=== PATIENT | female | born 1930 | race Caucasian/White ===

== ENCOUNTER 2017-04-21 15:56 | Emergency (ER) | payer MEDICARE, OTHER ==
[~2017-04-21] VITALS: Ht 152.4 cm; Wt 68.2 kg
[~2017-04-21 15:56] MED LIST: AMLO-511 PO; ASPI-556 PO; BENA20 PO; CITA10TA68 PO; DONE10TA PO; ERGO500050 PO; FENO134C PO; INSU100C3 SQ; INSU100C4 SQ; MEMA10TA11 PO; SIMV-260 PO; SITA1TAB2 PO
[2017-04-21 16:07] LABS: GLUCOSE COMMENT 1 Doctor Notified; GLUCOSE COMMENT 2 Repeated; GLUCOSE,POINT OF CARE 48 MG/DL (70-110)
[2017-04-21] MEDS ORDERED: DEXTROSE 50%-WATER 25 GM/50 ML SYRINGE IVP ONE (16:15)
[2017-04-21 16:22] LABS: GLUCOSE COMMENT 1 Repeated; GLUCOSE,POINT OF CARE 61 MG/DL (70-110)
[2017-04-21 16:49] LABS: BASOPHILS % (AUTO) 0.6 % (0.0-2.0); EOSINOPHILS % (AUTO) 0.6 % (1.0-6.0); HEMATOCRIT 34.5 % (36-46); HEMOGLOBIN 11.7 g/dL (12.0-16.0); LYMPHOCYTES # (AUTO) 2.2 K/uL (1.0-4.8); LYMPHOCYTES % (AUTO) 18.4 % (22.0-44.0); MEAN CORPUSCULAR HEMOGLOBIN 28.5 pg (26.0-34.0); MEAN CORPUSCULAR HGB CONC 33.9 G/dL (31.0-37.0); MEAN CORPUSCULAR VOLUME 84 fL (80-100); MONOCYTES # (AUTO) 0.6 K/uL (0.1-1.0); MONOCYTES % (AUTO) 4.9 % (2.0-9.0); NEUTROPHILS % (AUTO) 75.5 % (40.0-70.0); PLATELET COUNT (AUTO) 281 K/uL (150-450); RED CELL DISTRIBUTION WIDTH 14.1 % (11.5-14.5); WHITE BLOOD COUNT (AUTO) 11.9 K/uL (4.5-11.0)
[2017-04-21 17:10] LABS: CALCIUM, TOTAL 9.1 mg/dL (8.8-10.5); CREATININE 1.35 mg/dL (0.60-1.30); POTASSIUM 3.4 mmol/L (3.5-5.1)
[2017-04-21 17:15] LABS: BILIRUBIN,TOTAL 0.4 mg/dL (0.1-1.0); TOTAL PROTEIN, SERUM 6.9 g/dL (6.4-8.2)
[2017-04-21 17:18] LABS: LACTIC ACID 1.2 mmol/L (0.4-2.0)
[2017-04-21 17:33] LABS: GLUCOSE,POINT OF CARE 181 MG/DL (70-110)
[2017-04-21 19:27] LABS: GLUCOSE,POINT OF CARE 117 MG/DL (70-110)
[2017-04-21 19:49] LABS: APPEARANCE,URINE CLOUDY (CLEAR); GLUCOSE, URINE (UA) NEGATIVE (NEGATIVE); KETONES,URINE NEGATIVE (NEGATIVE); LEUKOCYTE ESTERASE ,URINE TRACE (NEGATIVE); OCCULT BLOOD,URINE TRACE (NEGATIVE); PROTEIN,URINE NEGATIVE (NEGATIVE)
[2017-04-21 19:52] LABS: ADD UA MICROSCOPIC YES
[2017-04-21 20:04] LABS: RBC,URINE None Seen /HPF (0-2); SQUAMOUS EPITHELIAL CELL,UR Rare /LPF (None Seen)
[2017-04-21 20:33] LABS: GLUCOSE,POINT OF CARE 149 MG/DL (70-110)
[2017-04-21 20:37] VITALS: BP 142/65
== END 2017-04-21 20:38 | disposition home or self-care (01) ==
LOC: EMS 16:03
DX: E11.649 Type 2 diabetes mellitus with hypoglycemia without coma (principal); E78.00 Pure hypercholesterolemia, unspecified; I10 Essential (primary) hypertension; E03.9 Hypothyroidism, unspecified; Z95.0 Presence of cardiac pacemaker; Z79.4 Long term (current) use of insulin; Z79.82 Long term (current) use of aspirin
CPT/HCPCS: 51702; 82948; 82962; 83605; 87040; 87086; 93005; 96374; 99285

== ENCOUNTER 2017-10-01 15:36 | Inpatient (IN) | payer MEDICARE, OTHER ==
[~2017-10-01] VITALS: Ht 162.6 cm; Wt 76.5 kg
[~2017-10-01 15:36] MED LIST changes: +CIPR-279 PO; +CITA20TA9 PO; -DONE10TA PO; +DONE10TA8 PO; +ERGO500044 PO; +FENO135C4 PO; +IBAN150T8 PO; +INSLAN SQ; +INSU100I15 SQ
[2017-10-01] MEDS ORDERED: DEXTROSE 50%-WATER 25 GM/50 ML SYRINGE IVP ONE ×3 (15:56→19:15)
[2017-10-01 16:04] LABS: BASOPHILS % (AUTO) 0.3 % (0.0-2.0); EOSINOPHILS % (AUTO) 1.2 % (1.0-6.0); HEMATOCRIT 39.4 % (36-46); HEMOGLOBIN 13.1 g/dL (12.0-16.0); LYMPHOCYTES # (AUTO) 4.7 K/uL (1.0-4.8); LYMPHOCYTES % (AUTO) 31.9 % (22.0-44.0); MEAN CORPUSCULAR HEMOGLOBIN 28.5 pg (26.0-34.0); MEAN CORPUSCULAR HGB CONC 33.3 G/dL (31.0-37.0); MEAN CORPUSCULAR VOLUME 86 fL (80-100); MONOCYTES # (AUTO) 0.7 K/uL (0.1-1.0); MONOCYTES % (AUTO) 4.7 % (2.0-9.0); NEUTROPHILS # (AUTO) 9.1 K/uL (1.8-7.7); NEUTROPHILS % (AUTO) 61.9 % (40.0-70.0); PLATELET COUNT (AUTO) 408 K/uL (150-450); RED CELL DISTRIBUTION WIDTH 14.1 % (11.5-14.5)
[2017-10-01 16:17] LABS: GLUCOSE,POINT OF CARE 25 MG/DL (70-110)
[2017-10-01 16:20] LABS: ALBUMIN 3.5 g/dL (3.4-5.0); BILIRUBIN,TOTAL 0.3 mg/dL (0.1-1.0); CREATININE 1.37 mg/dL (0.60-1.30); TOTAL PROTEIN, SERUM 7.5 g/dL (6.4-8.2)
[2017-10-01 16:23] LABS: POTASSIUM 2.8 mmol/L (3.5-5.1)
[2017-10-01] MEDS ORDERED: POTASSIUM CHLORIDE 20 MEQ ER TABLET PO ONE (16:30)
[2017-10-01 16:38] LABS: GLUCOSE,POINT OF CARE 243 MG/DL (70-110)
[2017-10-01] MEDS ORDERED: CEPHALEXIN MONOHYDRATE 500 MG CAPSULE PO ONE (17:30)
[2017-10-01] MEDS ORDERED: LIRA0.6P SQ (17:42)
[2017-10-01] MEDS ORDERED: LOSA25TA21 PO (17:42)
[2017-10-01 19:08] LABS: GLUCOSE,POINT OF CARE 53 MG/DL (70-110)
[2017-10-01] MEDS ORDERED: 0.9% SODIUM CHLORIDE 10 ML SYRINGE IVP PRN (19:15)
[2017-10-01] MEDS ORDERED: ONDANSETRON HCL 4 MG/2 ML VIAL IVP PRN ×2 (19:15→22:45)
[2017-10-01] MEDS ORDERED: ACETAMINOPHEN 325 MG TABLET PO PRN ×2 (19:15→22:45)
[2017-10-01] MEDS ORDERED: DEXTROSE 5%-0.9% SODIUM CHL 1,000 ML IV ONE (19:15)
[2017-10-01 19:23] LABS: CREATININE 1.22 mg/dL (0.60-1.30); POTASSIUM 3.5 mmol/L (3.5-5.1)
[2017-10-01 19:30] LABS: ALBUMIN 3.3 g/dL (3.4-5.0); BILIRUBIN,TOTAL 0.5 mg/dL (0.1-1.0); TOTAL PROTEIN, SERUM 7.1 g/dL (6.4-8.2)
[2017-10-01 20:14] LABS: APPEARANCE,URINE CLOUDY (CLEAR); BILIRUBIN,URINE NEGATIVE (NEGATIVE); GLUCOSE, URINE (UA) 500 mg/dL (NEGATIVE); KETONES,URINE NEGATIVE (NEGATIVE); LEUKOCYTE ESTERASE ,URINE NEGATIVE (NEGATIVE); NITRATE,URINE NEGATIVE (NEGATIVE); OCCULT BLOOD,URINE NEGATIVE (NEGATIVE); PH,URINE 5.5 (5.0-8.0); PROTEIN,URINE POS 1+ (NEGATIVE)
[2017-10-01 20:22] LABS: GLUCOSE,POINT OF CARE 107 MG/DL (70-110)
[2017-10-01 20:22] LABS: BACTERIA,URINE Few /HPF (None Seen); RBC,URINE 0-2 /HPF (0-2); SQUAMOUS EPITHELIAL CELL,UR Moderate /LPF (None Seen); WBC,URINE 0-2 /HPF (0-5)
[2017-10-01 21:43] LABS: GLUCOSE,POINT OF CARE 82 MG/DL (70-110)
[2017-10-01] MEDS ORDERED: MAGNESIUM HYDROXIDE SUSPENSION 30 ML UDCUP PO PRN (22:45)
[2017-10-01] MEDS ORDERED: ALBUTEROL SULFATE 2.5 MG/0.5 ML NEB SOLUTION NEB PRN (22:45)
[2017-10-01] MEDS ORDERED: HYDROCODONE/ACETAMINOPHEN 5-325 MG TABLET PO PRN (22:45)
[2017-10-01] MEDS ORDERED: DEXTROSE 5%-WATER 1,000 ML IV ONE (22:45)
[2017-10-01] MEDS ORDERED: IPRATROPIUM BROMIDE 0.5 MG/2.5 ML NEB SOLUTION NEB PRN (22:45)
[2017-10-01] MEDS ORDERED: MORPHINE SULFATE 2 MG/ML SYRINGE IVP PRN (22:45)
[2017-10-01] MEDS ORDERED: LEVOFLOXACIN 500 MG/D5% WATER 100 ML IV ONE (23:00)
[2017-10-01 23:03] LABS: GLUCOSE,POINT OF CARE 142 MG/DL (70-110)
[2017-10-02 02:32] LABS: GLUCOSE,POINT OF CARE 108 MG/DL (70-110)
[2017-10-02 06:38] LABS: GLUCOSE,POINT OF CARE 139 MG/DL (70-110)
[2017-10-02 06:58] LABS: GLUCOSE,POINT OF CARE 126 MG/DL (70-110)
[2017-10-02 07:32] LABS: GLUCOSE,POINT OF CARE 115 MG/DL (70-110)
[2017-10-02] MEDS: PANTOPRAZOLE SODIUM 40 MG DR TABLET PO SCH (08:14)
[2017-10-02 09:01] VITALS: BP 134/58
[2017-10-02] MEDS: BENAZEPRIL HCL 20 MG TABLET PO SCH (09:03)
[2017-10-02] MEDS: MEMANTINE HCL 10 MG TABLET PO SCH ×2 (09:03→20:20)
[2017-10-02] MEDS: ENOXAPARIN SODIUM 40 MG/0.4 ML PF SYRINGE SQ SCH (09:03)
[2017-10-02] MEDS: DONEPEZIL HCL 10 MG TABLET PO SCH (09:04)
[2017-10-02] MEDS: CITALOPRAM HYDROBROMIDE 20 MG TABLET PO SCH (09:04)
[2017-10-02] MEDS: LOSARTAN POTASSIUM 25 MG TABLET PO SCH ×2 (09:04→20:20)
[2017-10-02 10:33] LABS: EOSINOPHILS % (AUTO) 0.7 % (1.0-6.0); HEMATOCRIT 36.1 % (36-46); HEMOGLOBIN 12.1 g/dL (12.0-16.0); LYMPHOCYTES # (AUTO) 2.4 K/uL (1.0-4.8); LYMPHOCYTES % (AUTO) 23.1 % (22.0-44.0); MEAN CORPUSCULAR HEMOGLOBIN 28.9 pg (26.0-34.0); MEAN CORPUSCULAR HGB CONC 33.7 G/dL (31.0-37.0); MEAN CORPUSCULAR VOLUME 86 fL (80-100); MONOCYTES # (AUTO) 0.6 K/uL (0.1-1.0); MONOCYTES % (AUTO) 6.2 % (2.0-9.0); NEUTROPHILS # (AUTO) 7.2 K/uL (1.8-7.7); PLATELET COUNT (AUTO) 334 K/uL (150-450)
[2017-10-02 11:04] LABS: BILIRUBIN,TOTAL 0.4 mg/dL (0.1-1.0); C-REACTIVE PROTEIN QUANT 0.07 mg/dL (0.00-0.30); CALCIUM, TOTAL 8.7 mg/dL (8.8-10.5); CHOL/HDL RATIO 4.6 (3.9-5.7); CREATININE 1.29 mg/dL (0.60-1.30); FREE T4 (FREE THYROXINE) 1.39 ng/dL (0.76-1.46); MAGNESIUM 1.8 mg/dL (1.80-2.40); PHOSPHORUS 2.6 mg/dL (2.5-4.9); POTASSIUM 4.5 mmol/L (3.5-5.1); THYROID STIMULATING HORMONE 6.39 uIU/mL (0.36-3.74); TOTAL PROTEIN, SERUM 6.8 g/dL (6.4-8.2)
[2017-10-02 11:38] LABS: ERYTHROCYTE SEDIMENTATION RATE 40 MM/HR (0-20)
[2017-10-02 11:57] VITALS: BP 141/61
[2017-10-02 12:30] VITALS: BP 141/61
[2017-10-02 16:04] VITALS: BP 145/85
[2017-10-02 18:14] LABS: GLUCOMETER DEV NAME(LOC) 5S 1L; GLUCOSE,POINT OF CARE 153 MG/DL (70-110)
[2017-10-02 18:15] LABS: GLUCOMETER DEV NAME(LOC) 5S 1L; GLUCOSE,POINT OF CARE 197 MG/DL (70-110)
[2017-10-02 20:04] VITALS: BP 141/53
[2017-10-02] MEDS ORDERED: SIMVASTATIN 20 MG TABLET PO SCH (21:00)
[2017-10-02] MEDS ORDERED: LEVOFLOXACIN 250 MG/D5% WATER 50 ML IV SCH (23:00)
[2017-10-02] MEDS ORDERED: SODIUM CHLORIDE 0.9% 100 ML ONE (23:49)
[2017-10-03 00:07] VITALS: BP 149/58
[2017-10-03 04:30] VITALS: BP 127/50
[2017-10-03] MEDS ORDERED: LEVOTHYROXINE SODIUM 25 MCG TABLET PO SCH (06:30)
[2017-10-03 07:46] LABS: BASOPHILS # (AUTO) 0.04 K/uL (0.00-0.20); BASOPHILS % (AUTO) 0.4 % (0.0-2.0); HEMATOCRIT 36.4 % (36-46); HEMOGLOBIN 12.1 g/dL (12.0-16.0); LYMPHOCYTES # (AUTO) 2.4 K/uL (1.0-4.8); LYMPHOCYTES % (AUTO) 25.5 % (22.0-44.0); MEAN CORPUSCULAR HEMOGLOBIN 28.9 pg (26.0-34.0); MEAN CORPUSCULAR HGB CONC 33.3 G/dL (31.0-37.0); MEAN CORPUSCULAR VOLUME 87 fL (80-100); MONOCYTES # (AUTO) 0.7 K/uL (0.1-1.0); NEUTROPHILS # (AUTO) 6.1 K/uL (1.8-7.7); PLATELET COUNT (AUTO) 297 K/uL (150-450)
[2017-10-03 07:58] LABS: CALCIUM, TOTAL 8.8 mg/dL (8.8-10.5); CREATININE 1.27 mg/dL (0.60-1.30); MAGNESIUM 1.8 mg/dL (1.80-2.40)
[2017-10-03] MEDS: PANTOPRAZOLE SODIUM 40 MG DR TABLET PO SCH (08:13)
[2017-10-03] MEDS: MEMANTINE HCL 10 MG TABLET PO SCH (08:13)
[2017-10-03] MEDS: DONEPEZIL HCL 10 MG TABLET PO SCH (08:13)
[2017-10-03] MEDS: BENAZEPRIL HCL 20 MG TABLET PO SCH (08:13)
[2017-10-03] MEDS: CITALOPRAM HYDROBROMIDE 20 MG TABLET PO SCH (08:13)
[2017-10-03] MEDS: ENOXAPARIN SODIUM 40 MG/0.4 ML PF SYRINGE SQ SCH (08:14)
[2017-10-03 08:22] VITALS: BP 132/50
[2017-10-03 11:15] VITALS: BP 124/43
[2017-10-03] MEDS: LOSARTAN POTASSIUM 25 MG TABLET PO SCH (12:38)
[2017-10-03] MEDS ORDERED: LEVO25TA9 PO (13:57)
[2017-10-03 15:22] VITALS: BP 102/49
[2017-10-03 19:13] LABS: GLUCOMETER DEV NAME(LOC) 5S 2N; GLUCOSE,POINT OF CARE 156 MG/DL (70-110)
[2017-10-03 19:13] LABS: GLUCOMETER DEV NAME(LOC) 5S 2N; GLUCOSE,POINT OF CARE 192 MG/DL (70-110)
[2017-10-03 19:13] LABS: GLUCOMETER DEV NAME(LOC) 5S 2N; GLUCOSE,POINT OF CARE 173 MG/DL (70-110)
[2017-10-03 19:13] LABS: GLUCOMETER DEV NAME(LOC) 5S 2N; GLUCOSE,POINT OF CARE 163 MG/DL (70-110)
[2017-10-03 19:13] LABS: GLUCOMETER DEV NAME(LOC) 5S 2N; GLUCOSE,POINT OF CARE 181 MG/DL (70-110)
[2017-10-03 19:18] LABS: GLUCOMETER DEV NAME(LOC) 5S 2N; GLUCOSE,POINT OF CARE 138 MG/DL (70-110)
[2017-10-03 19:18] LABS: GLUCOMETER DEV NAME(LOC) 5S 2N; GLUCOSE,POINT OF CARE 245 MG/DL (70-110)
[2017-10-03 19:18] LABS: GLUCOMETER DEV NAME(LOC) 5S 2N; GLUCOSE,POINT OF CARE 157 MG/DL (70-110)
[2017-10-03 19:18] LABS: GLUCOMETER DEV NAME(LOC) 5S 2N; GLUCOSE,POINT OF CARE 228 MG/DL (70-110)
[2017-10-05 22:33] LABS: GLUCOMETER DEV NAME(LOC) 5S 1L; GLUCOSE,POINT OF CARE 275 MG/DL (70-110)
[2017-10-05 22:33] LABS: GLUCOMETER DEV NAME(LOC) 5S 1L; GLUCOSE,POINT OF CARE 152 MG/DL (70-110)
[2017-10-05 22:34] LABS: GLUCOMETER DEV NAME(LOC) 5S 1L; GLUCOSE,POINT OF CARE 198 MG/DL (70-110)
[2017-10-05 22:34] LABS: GLUCOMETER DEV NAME(LOC) 5S 1L; GLUCOSE,POINT OF CARE 126 MG/DL (70-110)
[2017-10-08] MEDS ORDERED: ERGOCALCIFEROL (VIT D2) 50,000 UNITS CAPSULE PO SCH (09:00)
== END 2017-10-03 18:00 | disposition home or self-care (01) | DRG 637 ==
LOC: EMS 15:37 → 5S 10-02 03:59
PROVIDERS: ADMIT Hospitalist; ATTEND Hospitalist
DX: E11.649 Type 2 diabetes mellitus with hypoglycemia without coma (principal); G93.41 Metabolic encephalopathy; I42.9 Cardiomyopathy, unspecified; F05 Delirium due to known physiological condition; E11.22 Type 2 diabetes mellitus with diabetic chronic kidney disease; G30.9 Alzheimer's disease, unspecified; E66.01 Morbid (severe) obesity due to excess calories; N39.0 Urinary tract infection, site not specified; E78.00 Pure hypercholesterolemia, unspecified; E03.9 Hypothyroidism, unspecified; F02.80 Dementia in other diseases classified elsewhere, unspecified severity, without behavioral disturbance, psychotic disturbance, mood disturbance, and anxiety; I12.9 Hypertensive chronic kidney disease with stage 1 through stage 4 chronic kidney disease, or unspecified chronic kidney disease; N18.9 Chronic kidney disease, unspecified; Z79.4 Long term (current) use of insulin; Z79.899 Other long term (current) drug therapy; Z68.28 Body mass index [BMI] 28.0-28.9, adult
CPT/HCPCS: 82948; 82962; 83036; 83735; 84100; 84439; 84443; 85651; 86140; 93005; 96361; 96365; 96375; 97161; 99285; J1650; J1956; J7042; J7050; J7060

== ENCOUNTER 2017-10-13 13:11 | Emergency (ER) | payer MEDICARE, OTHER ==
[~2017-10-13] VITALS: Ht 152.4 cm; Wt 71.0 kg
[~2017-10-13 13:11] MED LIST changes: -AMLO-511 PO; -ASPI-556 PO; -CIPR-279 PO; -CITA10TA68 PO; -ERGO500044 PO; -FENO135C4 PO; -IBAN150T8 PO; -INSLAN SQ; -INSU100I15 SQ; +LEVO25TA9 PO; +LIRA0.6P SQ; +LOSA25TA21 PO; -SITA1TAB2 PO
[2017-10-13] MEDS ORDERED: VALS1TAB75 PO (13:24)
[2017-10-13 13:28] LABS: GLUCOSE,POINT OF CARE 52 MG/DL (70-110)
[2017-10-13 13:57] LABS: GLUCOSE,POINT OF CARE 84 MG/DL (70-110)
[2017-10-13 14:45] LABS: BASOPHILS % (AUTO) 0.5 % (0.0-2.0); EOSINOPHILS % (AUTO) 0.6 % (1.0-6.0); HEMATOCRIT 35.3 % (36-46); HEMOGLOBIN 11.9 g/dL (12.0-16.0); LYMPHOCYTES # (AUTO) 1.5 K/uL (1.0-4.8); LYMPHOCYTES % (AUTO) 14.7 % (22.0-44.0); MEAN CORPUSCULAR HEMOGLOBIN 28.8 pg (26.0-34.0); MEAN CORPUSCULAR HGB CONC 33.7 G/dL (31.0-37.0); MEAN CORPUSCULAR VOLUME 86 fL (80-100); MONOCYTES # (AUTO) 0.5 K/uL (0.1-1.0); MONOCYTES % (AUTO) 4.7 % (2.0-9.0); NEUTROPHILS # (AUTO) 8.3 K/uL (1.8-7.7); NEUTROPHILS % (AUTO) 79.5 % (40.0-70.0); PLATELET COUNT (AUTO) 257 K/uL (150-450); RED BLOOD CELL COUNT(AUTO) 4.13 MIL/uL (4.00-5.20); RED CELL DISTRIBUTION WIDTH 14.2 % (11.5-14.5)
[2017-10-13 15:00] LABS: CALCIUM, TOTAL 8.8 mg/dL (8.8-10.5); CREATININE 1.22 mg/dL (0.60-1.30); POTASSIUM 3.9 mmol/L (3.5-5.1)
[2017-10-13 15:06] LABS: ALBUMIN 2.9 g/dL (3.4-5.0); BILIRUBIN,TOTAL 0.4 mg/dL (0.1-1.0); TOTAL PROTEIN, SERUM 6.6 g/dL (6.4-8.2)
[2017-10-13 15:38] LABS: APPEARANCE,URINE CLOUDY (CLEAR); BILIRUBIN,URINE NEGATIVE (NEGATIVE); GLUCOSE, URINE (UA) NEGATIVE (NEGATIVE); KETONES,URINE NEGATIVE (NEGATIVE); LEUKOCYTE ESTERASE ,URINE NEGATIVE (NEGATIVE); NITRATE,URINE NEGATIVE (NEGATIVE); OCCULT BLOOD,URINE NEGATIVE (NEGATIVE); PH,URINE 5.5 (5.0-8.0); PROTEIN,URINE POS 1+ (NEGATIVE); UROBILINOGEN,URINE 0.2 mg/dL (<=1.0)
[2017-10-13 16:07] LABS: BACTERIA,URINE None Seen /HPF (None Seen); RBC,URINE 0-2 /HPF (0-2); SQUAMOUS EPITHELIAL CELL,UR Few /LPF (None Seen); WBC,URINE 0-2 /HPF (0-5)
[2017-10-13 16:12] LABS: GLUCOSE,POINT OF CARE 104 MG/DL (70-110)
[2017-10-13 16:28] VITALS: BP 128/52
== END 2017-10-13 16:50 | disposition home or self-care (01) ==
LOC: EMS 13:14
DX: E11.649 Type 2 diabetes mellitus with hypoglycemia without coma (principal); I95.9 Hypotension, unspecified; E78.00 Pure hypercholesterolemia, unspecified; I10 Essential (primary) hypertension; E03.9 Hypothyroidism, unspecified; Z95.0 Presence of cardiac pacemaker; Z79.4 Long term (current) use of insulin
CPT/HCPCS: 82962; 99285

== ENCOUNTER 2018-10-21 11:52 | Emergency (ER) | payer MEDICARE, OTHER ==
[~2018-10-21] VITALS: Ht 152.4 cm; Wt 71.8 kg
[~2018-10-21 11:52] MED LIST changes: +CITA-106 PO; -CITA20TA9 PO; -LOSA25TA21 PO; +VALS1TAB75 PO
[2018-10-21] MEDS ORDERED: LOSA50TA64 PO (12:03)
[2018-10-21 12:19] LABS: GLUCOSE,POINT OF CARE 55 MG/DL (70-110)
[2018-10-21 13:05] LABS: BASOPHILS % (AUTO) 0.5 % (0.0-2.0); EOSINOPHILS % (AUTO) 0.8 % (1.0-6.0); HEMATOCRIT 40.7 % (36-46); HEMOGLOBIN 13.3 g/dL (12.0-16.0); LYMPHOCYTES # (AUTO) 1.7 K/uL (1.0-4.8); LYMPHOCYTES % (AUTO) 16.8 % (22.0-44.0); MEAN CORPUSCULAR HEMOGLOBIN 28.1 pg (26.0-34.0); MEAN CORPUSCULAR HGB CONC 32.6 G/dL (31.0-37.0); MEAN CORPUSCULAR VOLUME 86 fL (80-100); MONOCYTES # (AUTO) 0.4 K/uL (0.1-1.0); MONOCYTES % (AUTO) 4.1 % (2.0-9.0); NEUTROPHILS # (AUTO) 8.1 K/uL (1.8-7.7); NEUTROPHILS % (AUTO) 77.8 % (40.0-70.0); PLATELET COUNT (AUTO) 306 K/uL (150-450); RED BLOOD CELL COUNT(AUTO) 4.72 MIL/uL (4.00-5.20); RED CELL DISTRIBUTION WIDTH 13.6 % (11.5-14.5)
[2018-10-21 13:13] LABS: APPEARANCE,URINE CLOUDY (CLEAR); BILIRUBIN,URINE NEGATIVE (NEGATIVE); GLUCOSE, URINE (UA) NEGATIVE (NEGATIVE); KETONES,URINE NEGATIVE (NEGATIVE); LEUKOCYTE ESTERASE ,URINE MODERATE (NEGATIVE); NITRATE,URINE POSITIVE (NEGATIVE); OCCULT BLOOD,URINE NEGATIVE (NEGATIVE); PROTEIN,URINE POS 1+ (NEGATIVE)
[2018-10-21 13:16] LABS: CREATININE 1.04 mg/dL (0.60-1.30); POTASSIUM 4.3 mmol/L (3.5-5.1)
[2018-10-21 13:22] LABS: ALBUMIN 3.3 g/dL (3.4-5.0); BILIRUBIN,TOTAL 0.3 mg/dL (0.1-1.0); TOTAL PROTEIN, SERUM 7.3 g/dL (6.4-8.2)
[2018-10-21 13:24] LABS: GLUCOSE,POINT OF CARE 89 MG/DL (70-110)
[2018-10-21 13:26] LABS: BACTERIA,URINE Many /HPF (None Seen); SQUAMOUS EPITHELIAL CELL,UR Moderate /LPF (None Seen); WBC,URINE 26-50 /HPF (0-5)
[2018-10-21 13:35] VITALS: BP 129/59
[2018-10-21] MEDS ORDERED: CIPROFLOXACIN HCL 250 MG TABLET PO ONE (14:00)
== END 2018-10-21 14:22 | disposition home or self-care (01) ==
LOC: EMS 11:53
DX: N39.0 Urinary tract infection, site not specified (principal); R41.82 Altered mental status, unspecified; I10 Essential (primary) hypertension; E11.9 Type 2 diabetes mellitus without complications; E78.00 Pure hypercholesterolemia, unspecified; E03.9 Hypothyroidism, unspecified; F41.9 Anxiety disorder, unspecified; Z79.4 Long term (current) use of insulin; Z79.899 Other long term (current) drug therapy
CPT/HCPCS: 87086; 93005

== ENCOUNTER 2020-05-23 13:05 | Inpatient (IN) | payer MEDICARE, OTHER ==
[~2020-05-23] VITALS: Ht 175.3 cm; Wt 77.5 kg
[~2020-05-23 13:05] MED LIST changes: -BENA20 PO; -CITA-106 PO; +CITA-144 PO; -DONE10TA8 PO; -ERGO500050 PO; -INSU100C3 SQ; +LEVO-72 PO; -LEVO25TA9 PO; +LOSA50TA37 PO; -VALS1TAB75 PO
[2020-05-23 13:39] LABS: BASOPHILS % (AUTO) 0.5 % (0.0-2.0); EOSINOPHILS % (AUTO) 2.5 % (1.0-6.0); HEMATOCRIT 36.8 % (36-46); HEMOGLOBIN 12.6 g/dL (12.0-16.0); LYMPHOCYTES # (AUTO) 1.6 K/uL (1.0-4.8); LYMPHOCYTES % (AUTO) 22.4 % (22.0-44.0); MEAN CORPUSCULAR HEMOGLOBIN 28.6 pg (26.0-34.0); MEAN CORPUSCULAR HGB CONC 34.2 G/dL (31.0-37.0); MEAN CORPUSCULAR VOLUME 84 fL (80-100); MONOCYTES # (AUTO) 0.4 K/uL (0.1-1.0); MONOCYTES % (AUTO) 6.1 % (2.0-9.0); NEUTROPHILS # (AUTO) 4.9 K/uL (1.8-7.7); NEUTROPHILS % (AUTO) 68.5 % (40.0-70.0); PLATELET COUNT (AUTO) 182 K/uL (150-450); RED CELL DISTRIBUTION WIDTH 13.7 % (11.5-14.5)
[2020-05-23 13:53] LABS: PROTHROMBIN TIME 10.9 SEC (9.4-11.6)
[2020-05-23 14:15] LABS: BILIRUBIN,TOTAL 0.6 mg/dL (0.1-1.0); CALCIUM, TOTAL 8.2 mg/dL (8.8-10.5); CREATININE 1.26 mg/dL (0.60-1.30); TOTAL PROTEIN, SERUM 5.6 g/dL (6.4-8.2)
[2020-05-23 14:16] LABS: POTASSIUM 2.8 mmol/L (3.5-5.1)
[2020-05-23] MEDS ORDERED: POTASSIUM CHLORIDE 20 MEQ ER TABLET PO ONE (14:30)
[2020-05-23] MEDS ORDERED: SODIUM CHLORIDE 0.9% 500 ML IV ONE (14:58)
[2020-05-23] MEDS ORDERED: FUROSEMIDE 40 MG/4 ML VIAL IVP ONE (15:00)
[2020-05-23] MEDS: POTASSIUM CHL 10 MEQ/WATER 50 ML IV SCH ×2 (15:21→16:32)
[2020-05-23 15:32] LABS: MAGNESIUM 1.8 mg/dL (1.80-2.40); PHOSPHORUS 3.8 mg/dL (2.5-4.9)
[2020-05-23] MEDS ORDERED: ONDANSETRON HCL 4 MG/2 ML VIAL IVP PRN (15:45)
[2020-05-23] MEDS ORDERED: 0.9% SODIUM CHLORIDE 10 ML SYRINGE IVP PRN ×2 (15:45→17:15)
[2020-05-23] MEDS ORDERED: ACETAMINOPHEN 325 MG TABLET PO PRN (15:45)
[2020-05-23] MEDS ORDERED: DEXTROSE 50%-WATER 25 GM/50 ML SYRINGE IVP PRN (17:00)
[2020-05-23] MEDS ORDERED: INSLAN SQ (17:15)
[2020-05-23] MEDS ORDERED: ALBUTEROL SULFATE 2.5 MG/0.5 ML NEB SOLUTION NEB PRN (17:15)
[2020-05-23] MEDS ORDERED: DOCUSATE SODIUM 100 MG CAPSULE PO PRN (17:15)
[2020-05-23] MEDS ORDERED: IPRATROPIUM BROMIDE 0.5 MG/2.5 ML NEB SOLUTION NEB PRN (17:15)
[2020-05-23] MEDS ORDERED: BISACODYL 10 MG RECTAL RECTAL SUPPOSITORY PR PRN (17:15)
[2020-05-23 18:59] LABS: APPEARANCE,URINE CLEAR (CLEAR); BILIRUBIN,URINE NEGATIVE (NEGATIVE); GLUCOSE, URINE (UA) NEGATIVE (NEGATIVE); KETONES,URINE NEGATIVE (NEGATIVE); LEUKOCYTE ESTERASE ,URINE NEGATIVE (NEGATIVE); NITRATE,URINE NEGATIVE (NEGATIVE); OCCULT BLOOD,URINE MODERATE (NEGATIVE); PH,URINE 6.5 (5.0-8.0); PROTEIN,URINE SEE CONFIRM (NEGATIVE); UROBILINOGEN,URINE 0.2 mg/dL (<=1.0)
[2020-05-23 19:05] LABS: BACTERIA,URINE None Seen /HPF (None Seen); SULFOSALICYLIC ACID,URINE 2+ (Negative); WBC,URINE 0-2 /HPF (0-5)
[2020-05-23 19:06] LABS: SQUAMOUS EPITHELIAL CELL,UR Few /LPF (None Seen)
[2020-05-23 21:04] LABS: GLUCOMETER DEV NAME(LOC) 5N.1; GLUCOSE,POINT OF CARE 239 MG/DL (70-110)
[2020-05-23] MEDS ORDERED: SODIUM CHLORIDE 0.9% 100 ML ONE (22:27)
[2020-05-23] MEDS: SIMVASTATIN 20 MG TABLET PO SCH (22:31)
[2020-05-23] MEDS: HEPARIN SODIUM,PORCINE 5,000 UNITS/ML VIAL SQ SCH (22:31)
[2020-05-23] MEDS: MEMANTINE HCL 10 MG TABLET PO SCH (22:31)
[2020-05-23] MEDS: FUROSEMIDE 20 MG/2 ML VIAL IVP SCH (22:39)
[2020-05-23] MEDS: DOXYCYCLINE HYCLATE 100 MG in DEXTROSE 5%-WATER 100 ML IV SCH (22:45)
[2020-05-23] MEDS: HydrALAZINE HCL 20 MG/ML VIAL IVP PRN (23:02)
[2020-05-23] MEDS: INSULIN LISPRO 100 UNITS/ML SQ PRN (23:03)
[2020-05-24] VITALS (7 sets, daily range): BP systolic 151–204; BP diastolic 66–87
[2020-05-24 06:50] LABS: BASOPHILS % (AUTO) 0.4 % (0.0-2.0); EOSINOPHILS % (AUTO) 1.8 % (1.0-6.0); HEMATOCRIT 36.5 % (36-46); HEMOGLOBIN 12.5 g/dL (12.0-16.0); LYMPHOCYTES # (AUTO) 1.7 K/uL (1.0-4.8); LYMPHOCYTES % (AUTO) 21.9 % (22.0-44.0); MEAN CORPUSCULAR HEMOGLOBIN 28.6 pg (26.0-34.0); MEAN CORPUSCULAR HGB CONC 34.2 G/dL (31.0-37.0); MEAN CORPUSCULAR VOLUME 84 fL (80-100); MONOCYTES # (AUTO) 0.4 K/uL (0.1-1.0); MONOCYTES % (AUTO) 5.7 % (2.0-9.0); NEUTROPHILS # (AUTO) 5.6 K/uL (1.8-7.7); NEUTROPHILS % (AUTO) 70.2 % (40.0-70.0); PLATELET COUNT (AUTO) 180 K/uL (150-450); RED BLOOD CELL COUNT(AUTO) 4.36 MIL/uL (4.00-5.20); RED CELL DISTRIBUTION WIDTH 13.9 % (11.5-14.5)
[2020-05-24 07:08] LABS: GLUCOMETER DEV NAME(LOC) 5S.1; GLUCOSE,POINT OF CARE 136 MG/DL (70-110)
[2020-05-24 07:25] LABS: BILIRUBIN,TOTAL 0.5 mg/dL (0.1-1.0); CALCIUM, TOTAL 8.2 mg/dL (8.8-10.5); CHOL/HDL RATIO 4.4 (3.9-5.7); CREATININE 1.18 mg/dL (0.60-1.30); FREE T4 (FREE THYROXINE) 1.59 ng/dL (0.76-1.46); MAGNESIUM 1.6 mg/dL (1.80-2.40); THYROID STIMULATING HORMONE 6.7 uIU/mL (0.36-3.74); TOTAL PROTEIN, SERUM 5.4 g/dL (6.4-8.2)
[2020-05-24 07:29] LABS: POTASSIUM 2.8 mmol/L (3.5-5.1)
[2020-05-24] MEDS ORDERED: LOSARTAN POTASSIUM 50 MG TABLET PO SCH (09:00)
[2020-05-24] MEDS: DOXYCYCLINE HYCLATE 100 MG in DEXTROSE 5%-WATER 100 ML IV SCH ×2 (11:02→20:54)
[2020-05-24] MEDS: CITALOPRAM HYDROBROMIDE 20 MG TABLET PO SCH (11:02)
[2020-05-24] MEDS: FUROSEMIDE 20 MG/2 ML VIAL IVP SCH ×2 (11:02→20:48)
[2020-05-24] MEDS: MEMANTINE HCL 10 MG TABLET PO SCH ×2 (11:03→21:24)
[2020-05-24] MEDS: HEPARIN SODIUM,PORCINE 5,000 UNITS/ML VIAL SQ SCH ×2 (11:03→20:52)
[2020-05-24] MEDS: PANTOPRAZOLE SODIUM 40 MG DR TABLET PO SCH (11:03)
[2020-05-24] MEDS: POTASSIUM CHLORIDE 20 MEQ ER TABLET PO PRN (11:03)
[2020-05-24] MEDS: MAGNESIUM OXIDE 400 MG TABLET PO PRN ×3 (11:03→22:57)
[2020-05-24] MEDS: ASPIRIN 81 MG CHEWABLE TABLET PO SCH (11:03)
[2020-05-24] MEDS: INSULIN LISPRO 100 UNITS/ML SQ PRN ×3 (11:11→21:13)
[2020-05-24] MEDS: LEVOTHYROXINE SODIUM 25 MCG TABLET PO SCH (11:15)
[2020-05-24 12:35] LABS: GLUCOMETER DEV NAME(LOC) 5S.1; GLUCOSE,POINT OF CARE 214 MG/DL (70-110)
[2020-05-24] MEDS: SIMVASTATIN 20 MG TABLET PO SCH (20:47)
[2020-05-24 21:19] LABS: GLUCOMETER DEV NAME(LOC) 5N.3; GLUCOSE,POINT OF CARE 242 MG/DL (70-110)
[2020-05-24 23:51] LABS: GLUCOMETER DEV NAME(LOC) 5N.1; GLUCOSE,POINT OF CARE 175 MG/DL (70-110)
[2020-05-25] MEDS: HydrALAZINE HCL 20 MG/ML VIAL IVP PRN ×2 (00:04→05:38)
[2020-05-25 05:15] VITALS: BP 196/72
[2020-05-25] MEDS: LEVOTHYROXINE SODIUM 25 MCG TABLET PO SCH (05:38)
[2020-05-25] MEDS: INSULIN LISPRO 100 UNITS/ML SQ PRN ×3 (06:08→21:22)
[2020-05-25 06:15] LABS: GLUCOMETER DEV NAME(LOC) 5S.2A; GLUCOSE,POINT OF CARE 189 MG/DL (70-110)
[2020-05-25 06:45] LABS: BASOPHILS % (AUTO) 0.5 % (0.0-2.0); EOSINOPHILS % (AUTO) 1.6 % (1.0-6.0); HEMATOCRIT 37.7 % (36-46); HEMOGLOBIN 12.5 g/dL (12.0-16.0); LYMPHOCYTES # (AUTO) 1.8 K/uL (1.0-4.8); LYMPHOCYTES % (AUTO) 20.5 % (22.0-44.0); MEAN CORPUSCULAR HEMOGLOBIN 27.8 pg (26.0-34.0); MEAN CORPUSCULAR HGB CONC 33.3 G/dL (31.0-37.0); MEAN CORPUSCULAR VOLUME 84 fL (80-100); MONOCYTES # (AUTO) 0.5 K/uL (0.1-1.0); MONOCYTES % (AUTO) 5.9 % (2.0-9.0); NEUTROPHILS # (AUTO) 6.4 K/uL (1.8-7.7); NEUTROPHILS % (AUTO) 71.5 % (40.0-70.0); PLATELET COUNT (AUTO) 183 K/uL (150-450); RED BLOOD CELL COUNT(AUTO) 4.51 MIL/uL (4.00-5.20); RED CELL DISTRIBUTION WIDTH 13.8 % (11.5-14.5)
[2020-05-25 07:17] LABS: ALBUMIN 2.1 g/dL (3.4-5.0); BILIRUBIN,TOTAL 0.5 mg/dL (0.1-1.0); CALCIUM, TOTAL 8.6 mg/dL (8.8-10.5); CREATININE 1.18 mg/dL (0.60-1.30); MAGNESIUM 1.6 mg/dL (1.80-2.40); POTASSIUM 3.1 mmol/L (3.5-5.1); TOTAL PROTEIN, SERUM 5.8 g/dL (6.4-8.2)
[2020-05-25 07:19] VITALS: BP 157/69
[2020-05-25] MEDS ORDERED: LOSARTAN POTASSIUM 50 MG TABLET PO SCH (09:00)
[2020-05-25] MEDS: CITALOPRAM HYDROBROMIDE 20 MG TABLET PO SCH (09:08)
[2020-05-25] MEDS: MEMANTINE HCL 10 MG TABLET PO SCH ×2 (09:08→21:14)
[2020-05-25] MEDS: MAGNESIUM OXIDE 400 MG TABLET PO PRN ×4 (09:08→22:35)
[2020-05-25] MEDS: HEPARIN SODIUM,PORCINE 5,000 UNITS/ML VIAL SQ SCH ×2 (09:08→20:57)
[2020-05-25] MEDS: FUROSEMIDE 20 MG/2 ML VIAL IVP SCH ×2 (09:09→20:58)
[2020-05-25] MEDS: POTASSIUM CHLORIDE 20 MEQ ER TABLET PO PRN (09:09)
[2020-05-25] MEDS: ASPIRIN 81 MG CHEWABLE TABLET PO SCH (09:09)
[2020-05-25] MEDS: PANTOPRAZOLE SODIUM 40 MG DR TABLET PO SCH (09:09)
[2020-05-25] MEDS: ONDANSETRON HCL 4 MG/2 ML VIAL IVP PRN (09:10)
[2020-05-25] MEDS: DOXYCYCLINE HYCLATE 100 MG in DEXTROSE 5%-WATER 100 ML IV SCH ×2 (09:10→20:58)
[2020-05-25 11:34] VITALS: BP 142/78
[2020-05-25 15:41] VITALS: BP 158/88
[2020-05-25 20:03] VITALS: BP 101/59
[2020-05-25] MEDS: SIMVASTATIN 20 MG TABLET PO SCH (20:58)
[2020-05-25 21:16] LABS: GLUCOMETER DEV NAME(LOC) 5N.3; GLUCOSE,POINT OF CARE 196 MG/DL (70-110)
[2020-05-25 21:17] LABS: GLUCOMETER DEV NAME(LOC) 5N.3; GLUCOSE,POINT OF CARE 163 MG/DL (70-110)
[2020-05-25 21:17] LABS: GLUCOMETER DEV NAME(LOC) 5N.3; GLUCOSE,POINT OF CARE 153 MG/DL (70-110)
[2020-05-26] VITALS (19 sets, daily range): BP systolic 111–206; BP diastolic 53–95
[2020-05-26] MEDS ORDERED: SODIUM CHLORIDE 0.9% 250 ML IV ONE (00:42)
[2020-05-26] MEDS: LEVOTHYROXINE SODIUM 25 MCG TABLET PO SCH (06:09)
[2020-05-26 06:18] LABS: GLUCOMETER DEV NAME(LOC) 5S.2A; GLUCOSE,POINT OF CARE 150 MG/DL (70-110)
[2020-05-26 07:12] LABS: BASOPHILS % (AUTO) 0.8 % (0.0-2.0); HEMATOCRIT 34.7 % (36-46); HEMOGLOBIN 11.8 g/dL (12.0-16.0); LYMPHOCYTES # (AUTO) 2.1 K/uL (1.0-4.8); LYMPHOCYTES % (AUTO) 25.2 % (22.0-44.0); MEAN CORPUSCULAR HEMOGLOBIN 29.1 pg (26.0-34.0); MEAN CORPUSCULAR HGB CONC 34.1 G/dL (31.0-37.0); MEAN CORPUSCULAR VOLUME 85 fL (80-100); MONOCYTES # (AUTO) 0.4 K/uL (0.1-1.0); MONOCYTES % (AUTO) 5.2 % (2.0-9.0); NEUTROPHILS # (AUTO) 5.6 K/uL (1.8-7.7); NEUTROPHILS % (AUTO) 67.8 % (40.0-70.0); PLATELET COUNT (AUTO) 188 K/uL (150-450); RED BLOOD CELL COUNT(AUTO) 4.07 MIL/uL (4.00-5.20); RED CELL DISTRIBUTION WIDTH 13.9 % (11.5-14.5)
[2020-05-26 07:34] LABS: ALBUMIN 2.2 g/dL (3.4-5.0); BILIRUBIN,TOTAL 0.5 mg/dL (0.1-1.0); CALCIUM, TOTAL 8.1 mg/dL (8.8-10.5); CREATININE 1.48 mg/dL (0.60-1.30); TOTAL PROTEIN, SERUM 5.8 g/dL (6.4-8.2)
[2020-05-26] MEDS ORDERED: LIDOCAINE/PF 1% 30 ML VIAL ONE (08:17)
[2020-05-26] MEDS ORDERED: SODIUM BICARBONATE 50 MEQ/50 ML VIAL ONE (08:17)
[2020-05-26] MEDS ORDERED: FentaNYL CITRATE-PF 100 MCG/2 ML VIAL ONE (08:18)
[2020-05-26] MEDS ORDERED: MIDAZOLAM HCL 2 MG/2 ML VIAL ONE (08:18)
[2020-05-26] MEDS ORDERED: 0.9% SODIUM CHLORIDE 10 ML SYRINGE IVP ONE (08:19)
[2020-05-26 08:21] LABS: PROTHROMBIN TIME 10.9 SEC (9.4-11.6)
[2020-05-26] MEDS: ASPIRIN 81 MG CHEWABLE TABLET PO SCH (09:00)
[2020-05-26] MEDS: HEPARIN SODIUM,PORCINE 5,000 UNITS/ML VIAL SQ SCH ×2 (09:00→21:08)
[2020-05-26] MEDS ORDERED: LIDOCAINE 1% 30 ML/SOD BICARB 8.4% 4 ML SQ ONE (09:45)
[2020-05-26] MEDS: MEMANTINE HCL 10 MG TABLET PO SCH ×2 (10:39→21:07)
[2020-05-26] MEDS: PANTOPRAZOLE SODIUM 40 MG DR TABLET PO SCH (10:39)
[2020-05-26] MEDS: CITALOPRAM HYDROBROMIDE 20 MG TABLET PO SCH (10:39)
[2020-05-26] MEDS: HydrALAZINE HCL 20 MG/ML VIAL IVP PRN ×2 (10:39→21:08)
[2020-05-26] MEDS: DOXYCYCLINE HYCLATE 100 MG in DEXTROSE 5%-WATER 100 ML IV SCH ×2 (10:40→21:07)
[2020-05-26] MEDS: CeFAZolin 1 GM/DEXTROSE 50 ML IV SCH ×2 (14:29→21:06)
[2020-05-26] MEDS: ACETAMINOPHEN 325 MG TABLET PO PRN (14:30)
[2020-05-26 19:12] LABS: GLUCOMETER DEV NAME(LOC) 5N.1; GLUCOSE,POINT OF CARE 154 MG/DL (70-110)
[2020-05-26 19:13] LABS: GLUCOMETER DEV NAME(LOC) 5N.1; GLUCOSE,POINT OF CARE 173 MG/DL (70-110)
[2020-05-26] MEDS: SIMVASTATIN 20 MG TABLET PO SCH (21:07)
[2020-05-26 22:43] LABS: GLUCOMETER DEV NAME(LOC) 5N.3; GLUCOSE,POINT OF CARE 171 MG/DL (70-110)
[2020-05-27] VITALS (10 sets, daily range): BP systolic 154–200; BP diastolic 66–80
[2020-05-27] MEDS: CeFAZolin 1 GM/DEXTROSE 50 ML IV SCH (03:06)
[2020-05-27] MEDS: HydrALAZINE HCL 20 MG/ML VIAL IVP PRN ×2 (03:18→18:08)
[2020-05-27 06:16] LABS: BASOPHILS % (AUTO) 0.7 % (0.0-2.0); EOSINOPHILS % (AUTO) 0.4 % (1.0-6.0); HEMATOCRIT 35.1 % (36-46); HEMOGLOBIN 11.9 g/dL (12.0-16.0); LYMPHOCYTES # (AUTO) 1.4 K/uL (1.0-4.8); MEAN CORPUSCULAR HEMOGLOBIN 28.9 pg (26.0-34.0); MEAN CORPUSCULAR VOLUME 85 fL (80-100); MONOCYTES # (AUTO) 0.4 K/uL (0.1-1.0); MONOCYTES % (AUTO) 4.7 % (2.0-9.0); NEUTROPHILS % (AUTO) 76.2 % (40.0-70.0); PLATELET COUNT (AUTO) 182 K/uL (150-450); RED BLOOD CELL COUNT(AUTO) 4.13 MIL/uL (4.00-5.20); RED CELL DISTRIBUTION WIDTH 14.2 % (11.5-14.5)
[2020-05-27] MEDS: LEVOTHYROXINE SODIUM 25 MCG TABLET PO SCH (06:28)
[2020-05-27 06:36] LABS: ALBUMIN 2.2 g/dL (3.4-5.0); BILIRUBIN,TOTAL 0.5 mg/dL (0.1-1.0); CALCIUM, TOTAL 8.1 mg/dL (8.8-10.5); CREATININE 1.19 mg/dL (0.60-1.30); MAGNESIUM 2.3 mg/dL (1.80-2.40); POTASSIUM 3.8 mmol/L (3.5-5.1); TOTAL PROTEIN, SERUM 5.5 g/dL (6.4-8.2)
[2020-05-27] MEDS: HEPARIN SODIUM,PORCINE 5,000 UNITS/ML VIAL SQ SCH ×2 (08:50→21:09)
[2020-05-27] MEDS: CITALOPRAM HYDROBROMIDE 20 MG TABLET PO SCH (08:51)
[2020-05-27] MEDS: PANTOPRAZOLE SODIUM 40 MG DR TABLET PO SCH (08:51)
[2020-05-27] MEDS: ASPIRIN 81 MG CHEWABLE TABLET PO SCH (08:51)
[2020-05-27] MEDS: MEMANTINE HCL 10 MG TABLET PO SCH ×2 (08:51→21:09)
[2020-05-27] MEDS: ONDANSETRON HCL 4 MG/2 ML VIAL IVP PRN (08:52)
[2020-05-27] MEDS: DOXYCYCLINE HYCLATE 100 MG in DEXTROSE 5%-WATER 100 ML IV SCH ×2 (09:00→21:09)
[2020-05-27 10:33] LABS: GLUCOMETER DEV NAME(LOC) 5N.1; GLUCOSE,POINT OF CARE 168 MG/DL (70-110)
[2020-05-27 12:04] LABS: GLUCOMETER DEV NAME(LOC) 5S.2A; GLUCOSE,POINT OF CARE 174 MG/DL (70-110)
[2020-05-27] MEDS: INSULIN LISPRO 100 UNITS/ML SQ PRN (12:17)
[2020-05-27] MEDS ORDERED: HydrALAZINE HCL 20 MG/ML VIAL IVP ONE (18:30)
[2020-05-27] MEDS: ACETAMINOPHEN 325 MG TABLET PO PRN (18:55)
[2020-05-27] MEDS: SIMVASTATIN 20 MG TABLET PO SCH (21:09)
[2020-05-27] MEDS: HydrALAZINE HCL 25 MG TABLET PO SCH (21:09)
[2020-05-28 04:23] VITALS: BP 151/79
[2020-05-28] MEDS: LEVOTHYROXINE SODIUM 25 MCG TABLET PO SCH (05:59)
[2020-05-28 07:54] VITALS: BP 161/68
[2020-05-28] MEDS: HydrALAZINE HCL 25 MG TABLET PO SCH (08:28)
[2020-05-28] MEDS: PANTOPRAZOLE SODIUM 40 MG DR TABLET PO SCH (08:28)
[2020-05-28] MEDS: ASPIRIN 81 MG CHEWABLE TABLET PO SCH (08:28)
[2020-05-28] MEDS: HEPARIN SODIUM,PORCINE 5,000 UNITS/ML VIAL SQ SCH (08:28)
[2020-05-28] MEDS: MEMANTINE HCL 10 MG TABLET PO SCH (08:28)
[2020-05-28] MEDS: CITALOPRAM HYDROBROMIDE 20 MG TABLET PO SCH (08:28)
[2020-05-28 08:37] LABS: GLUCOMETER DEV NAME(LOC) 5N.1; GLUCOSE,POINT OF CARE 157 MG/DL (70-110)
[2020-05-28 08:37] LABS: GLUCOMETER DEV NAME(LOC) 5N.1; GLUCOSE,POINT OF CARE 154 MG/DL (70-110)
[2020-05-28] MEDS: DOXYCYCLINE HYCLATE 100 MG in DEXTROSE 5%-WATER 100 ML IV SCH (08:48)
[2020-05-28 10:08] LABS: GLUCOMETER DEV NAME(LOC) 5S.2A; GLUCOSE,POINT OF CARE 145 MG/DL (70-110)
[2020-05-28] MEDS ORDERED: HydrALAZINE HCL 50 MG TABLET PO ONE (11:30)
[2020-05-28 11:43] VITALS: BP 163/81
[2020-05-28 12:35] VITALS: BP 196/72
[2020-05-28] MEDS ORDERED: DOXY-354 PO (12:39)
[2020-05-28] MEDS ORDERED: ASPI-728 PO (12:40)
[2020-05-28] MEDS ORDERED: PANT-31 PO (12:41)
[2020-05-28] MEDS ORDERED: LEVO25TA9 PO (12:41)
[2020-05-28] MEDS ORDERED: HYDR-2924 PO (12:41)
[2020-05-28] MEDS ORDERED: HEPA500018 SQ (12:41)
[2020-05-28] MEDS ORDERED: ACET-2865 PO (12:42)
[2020-05-28] MEDS ORDERED: INSU100V SQ (12:42)
[2020-05-28] MEDS: HydrALAZINE HCL 20 MG/ML VIAL IVP PRN (13:11)
[2020-05-28 13:33] VITALS: BP 155/72
[2020-05-28] MEDS ORDERED: HydrALAZINE HCL 50 MG TABLET PO SCH (16:00)
[2020-05-28 17:29] LABS: GLUCOMETER DEV NAME(LOC) 5S.2A; GLUCOSE,POINT OF CARE 164 MG/DL (70-110)
== END 2020-05-28 13:45 | DRG 258 ==
LOC: EMS 13:10 → 5N 17:09 → 5S 05-24 17:47
PROVIDERS: ADMIT Internal Medicine; ATTEND Internal Medicine
PROC: 0JPT0PZ Removal of Cardiac Rhythm Related Device from Trunk Subcutaneous Tissue and Fascia, Open Approach (ICD-10-PCS; principal; 2020-05-26)
PROC: 0JH604Z Insertion of Pacemaker, Single Chamber into Chest Subcutaneous Tissue and Fascia, Open Approach (ICD-10-PCS; 2020-05-26)
DX: Z45.010 Encounter for checking and testing of cardiac pacemaker pulse generator [battery] (principal); I50.21 Acute systolic (congestive) heart failure; L03.119 Cellulitis of unspecified part of limb; N39.0 Urinary tract infection, site not specified; I20.0 Unstable angina; I11.0 Hypertensive heart disease with heart failure; E11.9 Type 2 diabetes mellitus without complications; E78.5 Hyperlipidemia, unspecified; E03.9 Hypothyroidism, unspecified; E87.6 Hypokalemia; E83.42 Hypomagnesemia; G30.9 Alzheimer's disease, unspecified; R00.1 Bradycardia, unspecified; Z20.828 Contact with and (suspected) exposure to other viral communicable diseases
CPT/HCPCS: 33228; 83735; 84100; 84132; 84145; 84439; 84443; 87426; 88300; 93005; 93306; 93970; 97116; 97162; 97530; 99291; J0360; J0690; J1644; J1940; J2250; J2405; J3010; J3480; J3490; J7040; J7050; J7060; 36415-L1; 36415-TC; 71045-TC; 80061-TC; U0003-CS

== ENCOUNTER 2020-08-01 07:13 | Emergency (ER) | payer MEDICARE, OTHER ==
[~2020-08-01] VITALS: Ht 157.5 cm; Wt 63.6 kg
[~2020-08-01 07:13] MED LIST changes: +ACET-2865 PO; +ASPI-728 PO; -FENO134C PO; +HEPA500018 SQ; +HYDR-2924 PO; -INSU100C4 SQ; +INSU100V SQ; +LEVO25TA9 PO; -LIRA0.6P SQ; -LOSA50TA37 PO; +PANT-31 PO
[2020-08-01 07:58] LABS: GLUCOSE,POINT OF CARE 101 MG/DL (70-110)
[2020-08-01 08:30] LABS: GLUCOSE,POINT OF CARE 98 MG/DL (70-110)
[2020-08-01 08:36] LABS: BASOPHILS % (AUTO) 0.7 % (0.0-2.0); EOSINOPHILS % (AUTO) 0.3 % (1.0-6.0); HEMATOCRIT 34.2 % (36-46); HEMOGLOBIN 11.5 g/dL (12.0-16.0); LYMPHOCYTES # (AUTO) 1.7 K/uL (1.0-4.8); LYMPHOCYTES % (AUTO) 10.1 % (22.0-44.0); MEAN CORPUSCULAR HEMOGLOBIN 28.7 pg (26.0-34.0); MEAN CORPUSCULAR HGB CONC 33.7 G/dL (31.0-37.0); MEAN CORPUSCULAR VOLUME 85 fL (80-100); MONOCYTES # (AUTO) 0.6 K/uL (0.1-1.0); MONOCYTES % (AUTO) 3.6 % (2.0-9.0); NEUTROPHILS # (AUTO) 14.5 K/uL (1.8-7.7); PLATELET COUNT (AUTO) 228 K/uL (150-450); RED BLOOD CELL COUNT(AUTO) 4.02 MIL/uL (4.00-5.20); RED CELL DISTRIBUTION WIDTH 16.5 % (11.5-14.5)
[2020-08-01 08:43] LABS: NEUTROPHILS % (AUTO) 85.3 % (40.0-70.0)
[2020-08-01 08:44] LABS: CALCIUM, TOTAL 8.3 mg/dL (8.8-10.5); CREATININE 0.94 mg/dL (0.60-1.30); POTASSIUM 3.3 mmol/L (3.5-5.1)
[2020-08-01 08:49] LABS: ALBUMIN 2.2 g/dL (3.4-5.0); BILIRUBIN,TOTAL 0.3 mg/dL (0.1-1.0); TOTAL PROTEIN, SERUM 5.6 g/dL (6.4-8.2)
[2020-08-01 09:17] LABS: GLUCOSE,POINT OF CARE 106 MG/DL (70-110)
[2020-08-01 11:14] LABS: BILIRUBIN,URINE NEGATIVE (NEGATIVE); GLUCOSE, URINE (UA) NEGATIVE (NEGATIVE); KETONES,URINE NEGATIVE (NEGATIVE); LEUKOCYTE ESTERASE ,URINE NEGATIVE (NEGATIVE); NITRATE,URINE NEGATIVE (NEGATIVE); OCCULT BLOOD,URINE NEGATIVE (NEGATIVE); PH,URINE 5.5 (5.0-8.0); PROTEIN,URINE SEE CONFIRM (NEGATIVE); UROBILINOGEN,URINE 0.2 mg/dL (<=1.0)
[2020-08-01 11:15] LABS: APPEARANCE,URINE SLIGHTLY CLOUDY (CLEAR)
[2020-08-01 11:21] LABS: SULFOSALICYLIC ACID,URINE 3+ (Negative)
[2020-08-01 11:22] LABS: AMORPHOUS SEDIMENT,UR Moderate /LPF (None Seen); BACTERIA,URINE None Seen /HPF (None Seen); RBC,URINE None Seen /HPF (0-2); SQUAMOUS EPITHELIAL CELL,UR Few /LPF (None Seen); WBC,URINE None Seen /HPF (0-5)
[2020-08-01] MEDS ORDERED: CeFAZolin 1 GM/DEXTROSE 50 ML IV ONE (12:00)
[2020-08-01] MEDS ORDERED: CefTRIAXone 1 GM/DEXTROSE 50 ML IV ONE (12:15)
[2020-08-01 13:42] VITALS: BP 189/68
[2020-08-01 13:44] LABS: GLUCOSE,POINT OF CARE 74 MG/DL (70-110)
[2020-08-01] MEDS ORDERED: HydrALAZINE HCL 25 MG TABLET PO ONE (13:45)
== END 2020-08-01 14:26 | disposition home or self-care (01) ==
LOC: EMS 07:13
DX: E11.649 Type 2 diabetes mellitus with hypoglycemia without coma (principal); F03.90 Unspecified dementia, unspecified severity, without behavioral disturbance, psychotic disturbance, mood disturbance, and anxiety; F91.9 Conduct disorder, unspecified; E87.6 Hypokalemia; I12.9 Hypertensive chronic kidney disease with stage 1 through stage 4 chronic kidney disease, or unspecified chronic kidney disease; E11.22 Type 2 diabetes mellitus with diabetic chronic kidney disease; N18.9 Chronic kidney disease, unspecified; F17.200 Nicotine dependence, unspecified, uncomplicated; Z79.82 Long term (current) use of aspirin; Z79.4 Long term (current) use of insulin
CPT/HCPCS: 36415; 80053; 81001; 82962; 83605; 83690; 83880; 84484; 85025; 87040; 96365; 99285; J0690; J0696; 51701